=== PATIENT | male | born 1960 | race Caucasian/White ===

== ENCOUNTER 2020-07-05 13:29 | Emergency (ER) | payer OTHER ==
[2020-07-05 13:36] VITALS: BP 137/83; PULSE 77; TEMP 98; BMI 33.9
== END 2020-07-05 15:08 | disposition home or self-care (01) ==
LOC: JERFT 13:29
DX: R07.81 Pleurodynia (principal)
CPT/HCPCS: 71101-TC-LT-FY; 71101-TC-RT-FY; 93005; 93010; 99285-25

== ENCOUNTER 2024-02-12 09:34 | Emergency (ER) | payer OTHER ==
[2024-02-12 09:43] VITALS: BP 151/66; PULSE 66; RESP 16; TEMP 98.6; BMI 34.3
[2024-02-12 13:05] LABS: POTASSIUM 4.1 mmol/L (3.5-5.1)
[2024-02-12 13:06] LABS: BLOOD UREA NITROGEN 12.2 mg/dL (7-18); CALCIUM 9.1 mg/dL (8.5-10.1); MAGNESIUM 2.1 mg/dL (1.8-2.4)
[2024-02-12 13:10] LABS: CREATININE 0.8 mg/dL (0.55-1.3)
== END 2024-02-12 15:07 | disposition home or self-care (01) ==
LOC: JERFT 09:34
DX: S86.912A Strain of unspecified muscle(s) and tendon(s) at lower leg level, left leg, initial encounter (principal); M79.662 Pain in left lower leg; X58.XXXA Exposure to other specified factors, initial encounter
CPT/HCPCS: 36415; 80048; 83735; 86618; 93971-TC; 99284-25